=== PATIENT | male | born 2005 | race Caucasian/White ===

== ENCOUNTER 2023-02-06 00:40 | Emergency (ER) | payer SELFPAY ==
[~2023-02-06] VITALS: Ht 167.6 cm; Wt 59.1 kg
[2023-02-06 00:47] VITALS: BP 130/61; PULSE 93; RESP 16; TEMP 98.6
[2023-02-06] MEDS ORDERED: IBUP-1492 PO (16:03)
== END 2023-02-06 01:17 | disposition home or self-care (01) ==
LOC: EMS 00:44
DX: Z53.21 Procedure and treatment not carried out due to patient leaving prior to being seen by health care provider (principal)
CPT/HCPCS: 99281; Z7502

== ENCOUNTER 2023-02-06 14:31 | Emergency (ER) | payer OTHER ==
[~2023-02-06] VITALS: Ht 167.6 cm; Wt 59.1 kg
[2023-02-06 14:45] VITALS: BP 115/67; PULSE 72; RESP 18; TEMP 98.6
[2023-02-06] MEDS ORDERED: CYCLOBENZAPRINE HCL 10 MG TABLET PO ONE (14:45)
[2023-02-06] MEDS ORDERED: IBUPROFEN 600 MG TABLET PO ONE (14:45)
[2023-02-06] MEDS ORDERED: IBUP-1492 PO (16:03)
== END 2023-02-06 16:15 | disposition home or self-care (01) ==
LOC: EMS 14:32
DX: S63.501A Unspecified sprain of right wrist, initial encounter (principal); V89.2XXA Person injured in unspecified motor-vehicle accident, traffic, initial encounter; Y93.89 Activity, other specified; Y92.89 Other specified places as the place of occurrence of the external cause; Y99.8 Other external cause status
CPT/HCPCS: 99283